=== PATIENT | male | born 1995 | race Two or more races ===

== ENCOUNTER 2024-11-19 18:36 | Emergency (ER) | payer OTHER ==
[~2024-11-19] VITALS: Ht 172.7 cm; Wt 58.0 kg
[2024-11-19 18:52] VITALS: O2SAT 100
[2024-11-19] MEDS ORDERED: NAPR-1176 MT (22:18)
[2024-11-19] MEDS: KETOROLAC 15MG/ML VIAL IM ONE (22:34)
[2024-11-19] MEDS: ACETAMINOPHEN 325MG TABLET PO ONE (22:41)
[2024-11-19 22:49] VITALS: BP 160/99; PULSE 83; RESP 20; TEMP 36.7; O2SAT 100
== END 2024-11-19 22:51 | disposition home or self-care (01) ==
LOC: ER 18:36
DX: S86.012A Strain of left Achilles tendon, initial encounter (principal); I10 Essential (primary) hypertension; Z79.1 Long term (current) use of non-steroidal anti-inflammatories (NSAID); X58.XXXA Exposure to other specified factors, initial encounter; Y93.67 Activity, basketball; Y92.89 Other specified places as the place of occurrence of the external cause; Y99.8 Other external cause status
CPT/HCPCS: 29515; 99283; J1885; Z7610 ×2; L1830